=== PATIENT | male | born 1985 | race American Indian/Alaskan Native ===

== ENCOUNTER 2018-01-17 08:04 | Emergency (ER) | payer OTHER ==
[~2018-01-17] VITALS: Ht 182.9 cm; Wt 122.5 kg
[~2018-01-17 08:04] MED LIST: CEPH500 PO; CRUTCH3 USE; ERYT.5TO RIGHTEYE; GUAI120S1 PO; HYDACE5 PO; IBUP400; IBUP800 PO; NAPR500 PO; NEOCOLOTSU AS; Norco 5-325 Ta1 EACH PO; OXYACE5T PO; Tamiflu75 MG PO; Zofran Odt4 MG SL
[2018-01-17] MEDS ORDERED: ONDA4ODT MM (09:16)
[2018-01-17] MEDS ORDERED: Voltaren100 GM TOP (09:16)
[2018-01-17] MEDS ORDERED: Prednisone20 MG PO (09:16)
[2018-01-17] MEDS ORDERED: CYCL10 PO (09:16)
[2018-01-17] MEDS ORDERED: Ultram50 MG PO (09:16)
== END 2018-01-17 10:04 | disposition home or self-care (01) ==
LOC: ER 08:04
DX: M54.41 Lumbago with sciatica, right side (principal); F17.210 Nicotine dependence, cigarettes, uncomplicated; Z79.899 Other long term (current) drug therapy
CPT/HCPCS: 96372; 99283; J1885

== ENCOUNTER 2018-07-04 21:25 | Emergency (ER) | payer OTHER ==
[~2018-07-04] VITALS: Ht 182.9 cm; Wt 117.9 kg
[~2018-07-04 21:25] MED LIST changes: +CYCL10 PO; +ONDA4ODT MM; +Prednisone20 MG PO; +Ultram50 MG PO; +Voltaren100 GM TOP
[2018-07-04 22:03] LABS: BASOPHILS ABSOLUTE AUTO 0.06 K/mm3 (0.00-0.23); BASOPHILS PERCENT AUTO 1 % (0-2); EOSINOPHILS ABSOLUTE AUTO 0.29 K/mm3 (0.00-0.68); EOSINOPHILS PERCENT AUTO 3 % (0-6); Hematocrit 47.9 % (37.0-53.0); Hemoglobin 16.3 g/dL (13.5-17.5); IMMATURE GRAN ABSOLUTE AUTO 0.02 K/mm3 (0.00-0.10); IMMATURE GRAN PERCENT AUTO 0 % (0-1); LYMPHOCYTES ABSOLUTE AUTO 3.89 K/mm3 (0.84-5.20); LYMPHOCYTES PERCENT AUTO 40 % (21-46); MONOCYTES ABSOLUTE AUTO 0.68 K/mm3 (0.16-1.47); MONOCYTES PERCENT AUTO 7 % (4-13); Mean Corpuscular HGB 32.3 pg (26.0-34.0); Mean Corpuscular Volume 95 fL (80-100); Mean Platelet Volume 11.3 fL (9.1-12.4); NEUTROPHILS ABSOLUTE AUTO 4.86 K/mm3 (1.96-9.15); NEUTROPHILS PERCENT AUTO 50 % (41-73); Platelet Count 214 K/mm3 (150-400); RDW Coefficient Variation 12.7 % (11.7-14.2); RDW Standard Deviation 44.4 fL (35.1-46.3); Red Blood Cell Count 5.05 M/mm3 (4.30-5.90)
[2018-07-04 22:20] LABS: Alanine Aminotransfer (ALT/SGP 40 U/L (12-78); Albumin, Blood 3.7 g/dL (3.4-5.0); Alk Phos 90 U/L (50-136); Anion Gap 11 mmol/L (6-16); Aspartate Aminotrans (AST/SGOT 38 U/L (12-37); Bilirubin, Total 0.4 mg/dL (0.1-1.0); Blood Urea Nitrogen 17 mg/dL (8-24); CO2, Blood 24 mmol/L (21-32); Calcium, Blood 8.4 mg/dL (8.5-10.1); Chloride, Blood 106 mmol/L (98-108); Creatinine, Blood 0.85 mg/dL (0.60-1.20); Globulin, Blood 3.6 g/dL (2.2-4.0); Glomerular Filtration Rate >60 (60-); Glucose, Blood 103 mg/dL (70-99); Potassium, Blood 3.7 mmol/L (3.5-5.5); Sodium, Blood 141 mmol/L (136-145); Total Protein, Blood 7.3 g/dL (6.4-8.2)
== END 2018-07-05 01:28 | disposition home or self-care (01) ==
LOC: ER 21:25
PROVIDERS: Emergency Medicine
DX: R00.2 Palpitations (principal); R07.9 Chest pain, unspecified; F17.210 Nicotine dependence, cigarettes, uncomplicated
CPT/HCPCS: 36415; 71046; 80053; 85025; 93005; 93010; 99285-25

== ENCOUNTER 2018-11-30 19:10 | Emergency (ER) | payer OTHER | END 2018-11-30 19:45 | disposition left against medical advice (07) | LOC: ER 19:10 | DX: Z53.21 Procedure and treatment not carried out due to patient leaving prior to being seen by health care provider (principal) ==

== ENCOUNTER → 2019-07-04 | Outpatient (CLI) | payer OTHER | END | disposition home or self-care (01) | LOC: LAB 09:35 → LAB SHORT 09:35 | DX: J02.9 Acute pharyngitis, unspecified (principal) | CPT/HCPCS: 87081 ==

== ENCOUNTER 2020-04-16 13:14 | Emergency (ER) | payer OTHER ==
[~2020-04-16] VITALS: Ht 182.9 cm; Wt 124.7 kg
[2020-04-16 14:03] LABS: BASOPHILS ABSOLUTE AUTO 0.06 K/mm3 (0.00-0.23); BASOPHILS PERCENT AUTO 1 % (0-2); EOSINOPHILS PERCENT AUTO 1 % (0-6); Hematocrit 49.5 % (37.0-53.0); Hemoglobin 17.2 g/dL (13.5-17.5); IMMATURE GRAN PERCENT AUTO 1 % (0-1); LYMPHOCYTES ABSOLUTE AUTO 3.32 K/mm3 (0.84-5.20); LYMPHOCYTES PERCENT AUTO 27 % (21-46); MONOCYTES PERCENT AUTO 6 % (4-13); Mean Corpuscular HGB 31.2 pg (26.0-34.0); Mean Corpuscular HGB Conc 34.7 g/dL (31.5-36.5); Mean Corpuscular Volume 90 fL (80-100); Mean Platelet Volume 11.1 fL (9.1-12.4); NEUTROPHILS PERCENT AUTO 65 % (41-73); Platelet Count 235 K/mm3 (150-400); RDW Coefficient Variation 12.3 % (11.7-14.2); RDW Standard Deviation 40.6 fL (35.1-46.3); Red Blood Cell Count 5.52 M/mm3 (4.30-5.90); White Blood Cell Count 12.28 K/mm3 (4.00-11.30)
[2020-04-16 14:21] LABS: Alanine Aminotransfer (ALT/SGP 37 U/L (12-78); Albumin, Blood 3.9 g/dL (3.4-5.0); Albumin/Globulin Ratio 0.9 (0.8-1.8); Alk Phos 98 U/L (50-136); Anion Gap 8 mmol/L (6-16); Aspartate Aminotrans (AST/SGOT 27 U/L (12-37); Bilirubin, Total 0.7 mg/dL (0.1-1.0); Blood Urea Nitrogen 12 mg/dL (8-24); Bun/Creatinine Ratio 13.8 (12.0-20.0); CO2, Blood 23 mmol/L (21-32); Calcium, Blood 9.3 mg/dL (8.5-10.1); Chloride, Blood 106 mmol/L (98-108); Creatinine, Blood 0.87 mg/dL (0.60-1.20); Globulin, Blood 4.5 g/dL (2.2-4.0); Glomerular Filtration Rate >60 (60-); Glucose, Blood 98 mg/dL (70-99); Potassium, Blood 3.7 mmol/L (3.5-5.5); Sodium, Blood 137 mmol/L (136-145); Total Protein, Blood 8.4 g/dL (6.4-8.2); Troponin I <0.015 ng/mL (0.000-0.040)
== END 2020-04-16 15:43 | disposition left against medical advice (07) ==
LOC: ER 13:14
PROVIDERS: Emergency Medicine
DX: R06.02 Shortness of breath (principal); R20.2 Paresthesia of skin; Z53.21 Procedure and treatment not carried out due to patient leaving prior to being seen by health care provider
CPT/HCPCS: 36415; 71046; 80053; 84484; 85025; 93005; 93010

== ENCOUNTER 2021-06-18 10:08 | Emergency (ER) | payer OTHER ==
[~2021-06-18] VITALS: Ht 182.9 cm; Wt 149.7 kg
[2021-06-18 11:15] LABS: BASOPHILS ABSOLUTE AUTO 0.03 K/mm3 (0.00-0.23); BASOPHILS PERCENT AUTO 1 % (0-2); EOSINOPHILS ABSOLUTE AUTO 0.05 K/mm3 (0.00-0.68); EOSINOPHILS PERCENT AUTO 1 % (0-6); Hematocrit 43.7 % (37.0-53.0); IMMATURE GRAN ABSOLUTE AUTO 0.03 K/mm3 (0.00-0.10); IMMATURE GRAN PERCENT AUTO 1 % (0-1); LYMPHOCYTES ABSOLUTE AUTO 1.63 K/mm3 (0.84-5.20); LYMPHOCYTES PERCENT AUTO 26 % (21-46); MONOCYTES ABSOLUTE AUTO 0.45 K/mm3 (0.16-1.47); MONOCYTES PERCENT AUTO 7 % (4-13); Mean Corpuscular HGB 31.1 pg (26.0-34.0); Mean Corpuscular HGB Conc 34.3 g/dL (31.5-36.5); Mean Corpuscular Volume 91 fL (80-100); Mean Platelet Volume 10.7 fL (9.1-12.4); NEUTROPHILS PERCENT AUTO 65 % (41-73); Platelet Count 247 K/mm3 (150-400); RDW Coefficient Variation 12.6 % (11.7-14.2); RDW Standard Deviation 41.3 fL (35.1-46.3); Red Blood Cell Count 4.82 M/mm3 (4.30-5.90); White Blood Cell Count 6.29 K/mm3 (4.00-11.30)
[2021-06-18 11:43] LABS: Alanine Aminotransfer (ALT/SGP 37 U/L (12-78); Albumin, Blood 3.4 g/dL (3.4-5.0); Albumin/Globulin Ratio 0.8 (0.8-1.8); Alk Phos 80 U/L (50-136); Anion Gap 6 mmol/L (6-16); Aspartate Aminotrans (AST/SGOT 35 U/L (12-37); Bilirubin, Total 0.6 mg/dL (0.1-1.0); Blood Urea Nitrogen 13 mg/dL (8-24); Bun/Creatinine Ratio 14.5 (12.0-20.0); CO2, Blood 24 mmol/L (21-32); Calcium, Blood 8.7 mg/dL (8.5-10.1); Chloride, Blood 106 mmol/L (98-108); Globulin, Blood 4.1 g/dL (2.2-4.0); Glomerular Filtration Rate >60 (60-); Glucose, Blood 115 mg/dL (70-99); Potassium, Blood 3.6 mmol/L (3.5-5.5); Sodium, Blood 136 mmol/L (136-145); Total Protein, Blood 7.5 g/dL (6.4-8.2)
== END 2021-06-18 13:48 | disposition home or self-care (01) ==
LOC: ER 10:08
PROVIDERS: Physician Assistant
DX: R07.9 Chest pain, unspecified (principal)
CPT/HCPCS: 71045; 80053; 84484; 85025; 93005; 93010

== ENCOUNTER 2022-06-04 18:02 | Emergency (ER) | payer OTHER, BC ==
[~2022-06-04] VITALS: Ht 182.9 cm; Wt 113.4 kg
== END 2022-06-04 20:00 | disposition home or self-care (01) ==
LOC: ER 18:02
DX: M25.511 Pain in right shoulder (principal); F17.210 Nicotine dependence, cigarettes, uncomplicated; V89.2XXA Person injured in unspecified motor-vehicle accident, traffic, initial encounter
CPT/HCPCS: 73030; 96372; 99283-25; J1885

== ENCOUNTER → 2023-08-14 | Outpatient (CLI) | payer BC ==
[2023-08-17 15:47] LABS: PANCREATIC ELASTASE,FECAL 466 ug/g (>=100)
[2023-08-17 15:53] LABS: CALPROTECTIN,FECAL 100 ug/g (<=49)
== END ==
LOC: LAB 06:00 → LAB SHORT 06:00
PROVIDERS: Family Medicine
DX: R14.0 Abdominal distension (gaseous) (principal)
CPT/HCPCS: 82653; 83993

== ENCOUNTER 2024-03-31 09:22 | Day surgery (SDC) | payer BC ==
[~2024-03-31] VITALS: Ht 182.9 cm; Wt 159.0 kg
[~2024-03-31 09:22] MED LIST changes: +Lactated Ringer's 1,000 ML IV SCH
[2024-03-31 10:18] VITALS: BP 146/83
--- NOTE | 2024-03-31 10:29 | NUR ---
History, Chart, Medications and Allergies reviewed before start of procedure. Patient up to Ambulate independently. Gait steady. Pre-Op teaching done. Pt verbalizes understanding. Patient confirms NPO status and agrees with scheduled surgery. Patient states colon prep results cloudy yellow/brown; MD notified.
[2024-03-31] MEDS ORDERED: propofoL 40 ML IV ONE (12:20)
--- NOTE | 2024-03-31 12:26 | NUR ---
03/31/24 1226 Tom Carnes MONITOR INTACT WITH CONTINUOUS PULSE OXIMETRY, CONTINUOUS END TITAL CO2, AND INTERMITTENT BLOOD PRESSURE.AND EKG ANESTHESIA PER [employer]INTENANCE SERVICER
[2024-03-31] MEDS ORDERED: propofoL 20 ML IV ONE (12:42)
[2024-03-31 12:50] VITALS: BP 138/87
--- NOTE | 2024-03-31 12:50 | NUR ---
PT TO DAY SURGERY STEP DOWN FROM COLONOSCOPY; BEDSIDE REPORT RECEIVED. PT IS AWAKE, ALERT AND ORIENTED; ABLE TO MOVE SELF IN BED. NO COMPLAINTS.
[2024-03-31 13:02] VITALS: BP 130/99
--- NOTE | 2024-03-31 13:03 | NUR ---
PT TOLERATING PO FLUIDS WELL. Discharge instructions reviewed with patient. Patient verbalizes understanding. Copy given to patient to take home. Patient States Post-Procedure ride home has been arranged.
--- NOTE | 2024-03-31 13:15 | NUR ---
Patient up to Ambulate independently. Gait steady. Discharged via wheelchair to private car for ride home.
== END 2024-03-31 13:16 | disposition home or self-care (01) ==
LOC: ORSCMMR 09:22 → ORD 10:30 → ORSCMMR 10:30
PROVIDERS: Internal Medicine Gastroenterology
PROC: 0DBN8ZX Excision of Sigmoid Colon, Via Natural or Artificial Opening Endoscopic, Diagnostic (ICD-10-PCS; principal; 2024-03-31 10:30)
DX: K62.5 Hemorrhage of anus and rectum (principal); K52.9 Noninfective gastroenteritis and colitis, unspecified; K63.5 Polyp of colon; E78.5 Hyperlipidemia, unspecified; G47.33 Obstructive sleep apnea (adult) (pediatric); F17.290 Nicotine dependence, other tobacco product, uncomplicated; F41.0 Panic disorder [episodic paroxysmal anxiety]; E66.01 Morbid (severe) obesity due to excess calories; Z68.42 Body mass index [BMI] 45.0-49.9, adult
CPT/HCPCS: 88305; J2704; J7120